=== PATIENT | male | born 1990 | race Hispanic/Latino ===

== ENCOUNTER 2020-08-03 | Emergency (ER) | payer SELFPAY ==
[2020-08-03] MEDS ORDERED: Lidocaine 1% PF 5 ML VIAL ONE (00:20)
[2020-08-03] MEDS ORDERED: Boostrix 0.5 ML (Tdap) VIAL ONE (00:32)
== END 2020-08-03 01:04 | disposition home or self-care (01) ==
LOC: ERS
DX: S61.210A Laceration without foreign body of right index finger without damage to nail, initial encounter (principal); Z23 Encounter for immunization; W45.8XXA Other foreign body or object entering through skin, initial encounter
CPT/HCPCS: 12001; 90471; 90715

== ENCOUNTER 2021-02-27 05:45 | Emergency (ER) | payer SELFPAY ==
[2021-02-27] MEDS ORDERED: diphenhydrAMINE 50 MG/ML VIAL ONE (06:15)
[2021-02-27] MEDS ORDERED: Metoclopramide HCl 10 MG/2 ML VIAL ONE (06:15)
[2021-02-27 06:30] LABS: #Eosinphils 0.1 thou/uL (0.0-0.7); #Lymphocytes 1.6 thou/uL (1.20-3.40); #Monocytes 0.4 thou/uL (0.11-0.59); %Basophils 0.4 % (0.0-1.0); %Eosinophils 0.9 % (0.0-10.0); %Lymphocytes 22.1 % (21.0-51.0); %Neutrophils 70.5 % (42.0-75.0); Mean Corpuscular HGB CONC 35.9 g/dL (32.0-36.0); Mean Corpuscular Hemoglobin 31.3 pg (27.0-31.0); Mean Corpuscular Volume 87.4 fL (78.0-98.0); Mean Platelet Volume 7.3 fL (7.4-10.4); Platelet Count 221 thou/uL (130-400); RBC Distribution Width 11.7 % (11.5-14.5); Red Blood Cell (RBC) Count 5.74 mill/uL (4.70-6.10); White Blood Cell (WBC) Count 7.1 thou/uL (4.8-10.8)
[2021-02-27 06:50] LABS: ALT (SGPT) 44 U/L (8-55); AST (SGOT) 23 U/L (5-34); Albumin 4.3 g/dL (3.5-5.0); Alkaline Phosphatase 77 U/L (40-110); Anion Gap 12 mmol/L (10-20); BUN (Urea Nitrogen) 10 mg/dL (8.9-20.6); Calc. Creatinine Clearance 0 mL/min (70-130); Carbon Dioxide 25 mmol/L (22-29); Chloride 105 mmol/L (98-107); Globulin 3.1 g/dL (2.4-3.5); Glucose 128 mg/dL (70-105); Protein, Total 7.4 g/dL (6.0-8.3); Sodium 138 mmol/L (136-145)
[2021-02-27] MEDS ORDERED: Magnesium 2 GM/50 ML BAG (IN WATER) ONE (07:13)
[2021-02-27] MEDS ORDERED: Ketorolac Tromethamine 30 MG/ML VIAL ONE (09:41)
[2021-02-27] MEDS ORDERED: Ketamine 50 MG/ML (10ML VIAL) ONE (09:41)
== END 2021-02-27 10:51 | disposition home or self-care (01) ==
LOC: ERS 05:45
DX: R51.9 Headache, unspecified (principal); R11.10 Vomiting, unspecified; R29.700 NIHSS score 0
CPT/HCPCS: 70450; 80053; 85025; 96365; 96367; 96375; J1200; J1885; J2765; J3475